=== PATIENT | female | born 1955 | race Caucasian/White ===

== ENCOUNTER 2017-04-01 08:15 | Day surgery (SDC) | payer OTHER ==
[~2017-04-01 08:15] MED LIST: Lactated Ringers 1,000 ML IV SCH; Sodium Chloride 0.9% 10 ML Syringe FLUSH PRN; Sodium Chloride 0.9% 2.5 ML Syringe FLUSH PRN
--- NOTE | 2017-04-01 08:48 | PCM.PREANE ---
Preanesthetic Assessment - Anesthesia/Transfusion/Family Hx Anesthesia History: Prior Anesthesia Without Reaction Family History of Anesthesia Reaction: No Transfusion History: No Prior Transfusion(s) Intubation History: Unknown - Review of Systems General: No Symptoms Pulmonary: No Symptoms Cardiovascular: No Symptoms Neurological: No Symptoms Other: Reports: None - Physical Assessment O2 Sat by Pulse Oximetry: 98 Respiratory Rate: 16 Vital Signs: Last Vital Signs Temp 36.5 C 04/01/17 08:26 Pulse 81 04/01/17 08:26 Resp 16 04/01/17 08:26 BP 144/64 H 04/01/17 08:26 Pulse Ox 98 04/01/17 08:26 Height: 1.6 m Weight: 74.389 kg ASA Class: 2 Mental Status: Alert & Oriented x3 Airway Class: Mallampati = 2 Dentition: Reports: Normal Dentition Thyro-Mental Finger Breadths: 3 Mouth Opening Finger Breadths: 3 ROM/Head Extension: Full Lungs: Clear to auscultation, Normal respiratory effort Cardiovascular: Regular Rate, Regular Rhythm - Allergies Allergies/Adverse Reactions: Allergies Allergy/AdvReac Type Severity Reaction Status Date / Time atorvastatin calcium Allergy Swelling Verified 03/30/17 10:02 [From Lipitor] hydrocodone Allergy Itching Verified 03/30/17 10:08 Latex, Natural Rubber Allergy Anaphylactic Verified 12/06/14 10:35 Shock oxycodone Allergy Itching Verified 03/30/17 10:08 Penicillins Allergy Anaphylactic Verified 03/30/17 10:08 Shock - Blood Blood Available: No - Anesthesia Plan Pre-Op Medication Ordered: None - Acknowledgements Anesthesia Type Planned: MAC Pt an Appropriate Candidate for the Planned Anesthesia: Yes Alternatives and Risks of Anesthesia Discussed w Pt/Guardian: Yes Pt/Guardian Understands and Agrees with Anesthesia Plan: Yes PreAnesthesia Questionnaire HEENT History: Reports: Other (see below) Other HEENT History: wears glasses Cardiovascular History: Reports: Other (see below) (h/o increased cholesterol) Genitourinary History: Reports: 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: Musculoskeletal History: Reports: Arthritis, Back pain, chronic, Other (see below) (bilateral hip pain, myofacial muscle pain) Other Musculoskeletal History: scoliosis - Past Surgical History Head Surgeries/Procedures: Reports: None HEENT Surgical History: Reports: Oral surgery Female Surgical History: Reports: Tubal ligation - SUBSTANCE USE Smoking Status *Q: Current Every Day Smoker (1 11/23 ppd) Tobacco Use Within Last Twelve Months: Cigarettes Recreational Drug Use History: No - HOME MEDS Home Medications: Home Meds Baclofen 10 mg PO TID PRN 03/30/17 [History] - CURRENT (IN HOUSE) MEDS Current Meds: Current Medications Lactated Ringer's (Ringers, Lactated) 1,000 mls @ 125 mls/hr IV ASDIRECTED MILLY Sodium Chloride (Saline Flush) 10 ml FLUSH ASDIRECTED PRN PRN Reason: Keep Vein Open Sodium Chloride (Saline Flush) 2.5 ml FLUSH ASDIRECTED PRN PRN Reason: Keep Vein Open
[2017-04-01] MEDS ORDERED: Lidocaine 2% 5 ML SDV ONE (09:56)
[2017-04-01] MEDS ORDERED: Midazolam 1 MG/ML 2 ML SDV ONE (09:57)
[2017-04-01] MEDS ORDERED: Propofol 200 MG/20 ML SDV ONE (09:57)
[2017-04-01] MEDS ORDERED: fentaNYL 100 MCG/2 ML SDV ONE (09:57)
--- NOTE | 2017-04-01 11:11 | PCM.OPNOTE ---
- General Post-Op/Procedure Note Date of Surgery/Procedure: 04/01/17 Operative Procedure(s): Screening colonoscopy Findings: sessile 1 mm polyp in rectum x 2, inflamed appeared lower aspect of rectum. One biopsy taken Pre Op Diagnosis: screening colonoscopy Post-Op Diagnosis: sigmoid polyp Anesthesia Technique: MAC Primary Surgeon: Mirlande Law Condition: Good
--- NOTE | 2017-04-01 11:22 | PCM.POSTAN ---
POST ANESTHESIA ASSESSMENT - MENTAL STATUS Mental Status: alert, oriented - RESPIRATORY Respiratory Status: respiratory rate WNL, airway patent, O2 saturation stable - CARDIOVASCULAR CV Status: pulse rate WNL, blood pressure stable - GASTROINTESTINAL GI Status: no symptoms - POST OP HYDRATION Hydration Status: adequate & stable - OBSERVATIONS Free Text/Narrative:: no anesthesia problems
[2017-04-01 11:45] VITALS: BP 119/68
--- NOTE | 2017-04-02 00:25 | OR ---
SURGEON: NICK ARITA MD DATE OF PROCEDURE: 04/01/2017 PREOPERATIVE DIAGNOSIS: Screening colonoscopy. POSTOPERATIVE DIAGNOSES: Two rectal polyps, rectal mucosal inflammation. PROCEDURE PERFORMED: Screening colonoscopy. INSTRUMENT USED: Olympus colonoscope. ANESTHESIA: MAC. EXTENT OF EXAM: To the cecum. PREPARATION: Good. LIMITATIONS: None. INDICATIONS FOR EXAMINATION: The patient is a 62-year-old female who presents for a screening colonoscopy. We discussed the procedure, expected perioperative course, and risks including bleeding, infection, or damage to surrounding structures, including perforation. The patient verbalized understanding and wishes to proceed. PROCEDURE IN DETAIL: The patient was brought to the endoscopy suite and placed in the left lateral decubitus position. A time-out was completed verifying the patient's name, age, date of , allergies, and procedure to be performed. Monitored anesthesia care was induced and continuous oxygen was provided via nasal cannula throughout the procedure. After adequate sedation was achieved, a digital rectal exam was performed. This examination was within normal limits. A well lubricated colonoscope was then inserted in the rectum and advanced under direct visualization to the level of cecum. The cecum was identified by both visual and anatomic landmarks. A photograph was taken of the cecal cap, but I was unable to retroflex within the cecum due to significant looping more proximally. The scope was then fully withdrawn while examining the color, texture, anatomy, and integrity of the mucosa from the cecum to the anal canal. Two small 1 mm sessile polyps were noted at the very proximal rectum. They were removed using a cold biopsy forceps and sent to pathology labeled as rectal polyps #1 and #2. The scope was then brought into the rectum and retroflexed to allow visualization of the anal canal opening. Upon doing so, I noted some inflammation around the anal canal opening. A small biopsy was taken of this tissue and sent as rectal biopsy. The scope was then straightened out and withdrawn from the patient. The procedure was terminated. The cecum to anus time was 28 minutes. The patient was transferred to the recovery room in stable condition. ENDOSCOPIC DIAGNOSIS: Rectal polyp x2, rectal inflammation. RECOMMENDATIONS: Follow up in clinic in 2 weeks. STEFAN NÚÑEZ /[id number]
== END 2017-04-01 11:58 | disposition home or self-care (01) ==
LOC: MW.SDS 08:15
PROVIDERS: ATTEND Surgery
DX: Z12.11 Encounter for screening for malignant neoplasm of colon (principal); D12.8 Benign neoplasm of rectum; K62.89 Other specified diseases of anus and rectum; G89.4 Chronic pain syndrome; M79.7 Fibromyalgia; E78.00 Pure hypercholesterolemia, unspecified; F17.210 Nicotine dependence, cigarettes, uncomplicated; Z88.5 Allergy status to narcotic agent; Z88.8 Allergy status to other drugs, medicaments and biological substances; Z91.040 Latex allergy status; Z98.51 Tubal ligation status; Z79.899 Other long term (current) drug therapy
CPT/HCPCS: 45380; 88305; J2250; J3010; J2704

== ENCOUNTER 2017-04-12 11:50 | Emergency (ER) | payer OTHER ==
[2017-04-12] MEDS ORDERED: Ketorolac 30 MG/ML SDV IVPUSH ONE (12:39)
[2017-04-12] MEDS ORDERED: Sodium Chloride 0.9% 1,000 ML IV ONE (12:39)
--- NOTE | 2017-04-12 12:56 | EDM.PDOC ---
ED HPI GENERAL MEDICAL PROBLEM - General Chief Complaint: Abdominal Pain Stated Complaint: INFECTION Time Seen by Provider: 04/12/17 12:40 Source of Information: Reports: Patient History Limitations: Reports: No Limitations - History of Present Illness INITIAL COMMENTS - FREE TEXT/NARRATIVE: History of present illness: [62-year-old female presenting with complaints of lower abdominal pain/pressure patient indicates that she had recently had colonoscopy and has had some GI distress since. Patient dialogue with Dr. Law who feels there could be the concern with any secondary infection of her: Status post procedure.] Review of systems: As per history of present illness and below otherwise all systems reviewed and negative. Past medical history: As per history of present illness and as reviewed below otherwise noncontributory. Surgical history: As per history of present illness and as reviewed below otherwise noncontributory. Social history: No reported history of drug or alcohol abuse. Family history: As per history of present illness and as reviewed below otherwise noncontributory. Physical exam: HEENT: Atraumatic, normocephalic, pupils reactive, negative for conjunctival pallor or scleral icterus, mucous membranes moist, throat clear, neck supple, nontender, trachea midline. Lungs: Clear to auscultation, breath sounds equal bilaterally, chest nontender. Heart: S1S2, regular, negative for clicks, rubs, or JVD. Abdomen: Soft, nondistended,diffuse non specific tenderness in lower quads. Negative for masses or hepatosplenomegaly. Negative for costovertebral tenderness. Pelvis: Stable nontender. Genitourinary: Deferred. Rectal: Deferred. Extremities: Atraumatic, negative for cords or calf pain. Neurovascular unremarkable. Neuro: Awake, alert, oriented. Cranial nerves II through XII unremarkable. Cerebellum unremarkable. Motor and sensory unremarkable throughout. Exam nonfocal. Diagnostics: [CBC, CMP, UA] Therapeutics: [IV fluid, Toradol] Impression: [abdominal pain] Plan: [] Definitive disposition and diagnosis as appropriate pending reevaluation and review of above. Lower Abdomen Pain Score (Numeric/FACES): 3 - Related Data Allergies Allergy/AdvReac Type Severity Reaction Status Date / Time atorvastatin calcium Allergy Swelling Verified 04/12/17 12:01 [From Lipitor] hydrocodone Allergy Itching Verified 04/12/17 12:01 Latex, Natural Rubber Allergy Anaphylactic Verified 04/12/17 12:01 Shock oxycodone Allergy Itching Verified 04/12/17 12:01 Penicillins Allergy Anaphylactic Verified 04/12/17 12:01 Shock Home Meds: Home Meds Baclofen 10 mg PO TID PRN 03/30/17 [History] Past Medical History HEENT History: Reports: Impaired Vision, Other (See Below) Other HEENT History: wears glasses Cardiovascular History: Reports: High Cholesterol Respiratory History: Reports: None Genitourinary History: Reports: 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: Musculoskeletal History: Reports: Arthritis, Back Pain, Chronic, Other (See Below) Other Musculoskeletal History: scoliosis Neurological History: Reports: None Psychiatric History: Reports: None Hematologic History: Reports: None Immunologic History: Reports: None Oncologic (Cancer) History: Reports: None Dermatologic History: Reports: None - Past Surgical History Head Surgeries/Procedures: Reports: None HEENT Surgical History: Reports: Oral Surgery GI Surgical History: Reports: Colonoscopy Female Surgical History: Reports: Tubal Ligation Social & Family History - Family History Family Medical History: Noncontributory - Tobacco Use Smoking Status *Q: Current Every Day Smoker Years of Tobacco use: 40 Packs/Tins Daily: 1 - Caffeine Use Caffeine Use: Reports: Coffee, Soda, Tea - Recreational Drug Use Recreational Drug Use: No ED ROS GENERAL - Review of Systems Review Of Systems: See Below (History of present illness) ED EXAM, GENERAL - Physical Exam Exam: See Below (See history of present illness) Course - Vital Signs Last Recorded V/S: Last Vital Signs Temp 36.2 C 04/12/17 11:58 Pulse 75 04/12/17 15:34 Resp 16 04/12/17 15:34 BP 148/64 H 04/12/17 15:34 Pulse Ox 97 04/12/17 15:34 - Orders/Labs/Meds Labs: Laboratory Tests 04/12/17 04/12/17 04/12/17 Range/Units 12:54 12:55 13:41 WBC 7.48 (4.0-11.0) K/uL RBC 6.05 H (4.30-5.90) M/uL Hgb 18.1 H (12.0-16.0) g/dL Hct 51.5 H (36.0-46.0) % MCV 85.1 (80.0-98.0) fL MCH 29.9 (27.0-32.0) pg MCHC 35.1 (31.0-37.0) g/dL RDW Std Deviation 40.7 (28.0-62.0) fl RDW Coeff of Shamar 13 (11.0-15.0) % Plt Count 251 (150-400) K/uL MPV 10.70 (7.40-12.00) fL Neut % (Auto) 54.8 (48.0-80.0) % Lymph % (Auto) 31.7 (16.0-40.0) % [place] % (Auto) 7.5 (0.0-15.0) % Eos % (Auto) 5.5 (0.0-7.0) % Baso % (Auto) 0.5 (0.0-1.5) % Neut # (Auto) 4.1 (1.4-5.7) K/uL Lymph # (Auto) 2.4 (0.6-2.4) K/uL [place] # (Auto) 0.6 (0.0-0.8) K/uL Eos # (Auto) 0.4 (0.0-0.7) K/uL Baso # (Auto) 0.0 (0.0-0.1) K/uL Nucleated RBC % 0.0 /100WBC Nucleated RBCs # 0 K/uL Sodium 141 (136-146) mmol/L Potassium 4.3 (3.5-5.1) mmol/L Chloride 109 (98-110) mmol/L Carbon Dioxide 23 (21-31) mmol/L BUN 16 (6.0-23.0) mg/dL Creatinine 1.0 (0.6-1.5) mg/dL Est Cr Clr Drug Dosing TNP Estimated GFR (MDRD) 56.2 ml/min Glucose 104 (60-110) mg/dL Calcium 8.9 (8.8-10.8) mg/dL Total Bilirubin 0.4 (0.1-1.5) mg/dL AST 26 (5-40) IU/L ALT 40 (8-54) IU/L Alkaline Phosphatase 48 (40-150) Total Protein 6.4 (6.0-8.0) g/dL Albumin 4.2 (3.4-4.8) g/dL Globulin 2.2 (2.0-3.5) g/dL Albumin/Globulin Ratio 1.9 (1.3-2.8) Urine Color YELLOW Urine Appearance CLEAR Urine pH 5.0 (5.0-8.0) Ur Specific [place] <= 1.005 (1.001-1.035) Urine Protein NEGATIVE (NEGATIVE) mg/dL Urine Glucose (UA) NEGATIVE (NEGATIVE) mg/dL Urine Ketones NEGATIVE (NEGATIVE) mg/dL Urine Occult Blood SMALL H (NEGATIVE) Urine Nitrite NEGATIVE (NEGATIVE) Urine Bilirubin NEGATIVE (NEGATIVE) Urine Urobilinogen 0.2 (<2.0) EU/dL Ur Leukocyte Esterase NEGATIVE (NEGATIVE) Urine RBC 0-1 (0-2/HPF) Urine WBC 0-1 (0-5/HPF) Ur Epithelial Cells RARE (NONE-FEW) Amorphous Sediment RARE (NEGATIVE) Urine Bacteria RARE (NEGATIVE) Meds: Medications Discontinued Medications Generic Name Dose Route Start Last Admin Trade Name Freq PRN Reason Stop Dose Admin Sodium Chloride 1,000 mls @ 999 mls/hr 04/12/17 12:39 04/12/17 13:02 Normal Saline IV 04/12/17 13:39 999 mls/hr STAT ONE Administration Iopamidol 75 ml 04/12/17 15:06 04/12/17 15:08 Isovue-370 (76%) IVPUSH 04/12/17 15:07 75 ml ONETIME STA Administration Ketorolac Tromethamine 30 mg 04/12/17 12:39 04/12/17 13:02 Toradol IVPUSH 04/12/17 12:40 30 mg ONETIME ONE Administration Departure - Departure Time of Disposition: 15:41 Disposition: Home, Self-Care 01 Condition: good Clinical Impression: Abdominal pain - Discharge Information Forms: ED Department Discharge Additional Instructions: The following information is given to patients seen in the emergency department who are being discharged to home. This information is to outline your options for follow-up care. We provide all patients seen in our emergency department with a follow-up referral. The need for follow-up, as well as the timing and circumstances, are variable depending upon the specifics of your emergency department visit. If you don't have a primary care physician on staff, we will provide you with a referral. We always advise you to contact your personal physician following an emergency department visit to inform them of the circumstance of the visit and for follow-up with them and/or the need for any referrals to a consulting specialist. The emergency department will also refer you to a specialist when appropriate. This referral assures that you have the opportunity for follow-up care with a specialist. All of these measure are taken in an effort to provide you with optimal care, which includes your follow-up. Under all circumstances we always encourage you to contact your private physician who remains a resource for coordinating your care. When calling for follow-up care, please make the office aware that this follow-up is from your recent emergency room visit. If for any reason you are refused follow-up, please contact the [facility] Emergency Department at and asked to speak to the emergency department charge nurse. follow up with PCP in 1-2 days return to ED as needed as discussed
[2017-04-12 14:12] LABS: CHLORIDE,CL 109 mmol/L (98-110); SODIUM,NA 141 mmol/L (136-146)
[2017-04-12] MEDS ORDERED: Iopamidol 755 Mg/ML 100 ML Bottle IVPUSH STA (15:06)
--- NOTE | 2017-04-12 15:35 | CT ---
CT of the abdomen and pelvis with contrast. HISTORY: Pain TECHNIQUE: Axial CT images were obtained of the abdomen and pelvis following administration of 75 mL of Isovue-370 in the left antecubital fossa without complication. Coronal and sagittal reconstructi ons obtained. FINDINGS: The lung bases are clear, no pleural effusion. There is a tiny hepatic hypodensity noted measuring approximately 1 cm within the dome of the left h epatic lobe. The spleen, adrenal glands, and pancreas appear normal. The gallbladder is unremarkable . The kidneys enhance and function symmetrically without evidence of obstructive uropathy. There is a tiny fat-containing periumbilical hernia. The large and small bowel are normal in caliber without evidence of obstruction. No pericolonic infl ammation or stranding. The appendix is mildly prominent in size at 7 mm without periappendiceal stra nding noted. No free pelvic fluid or pelvic lymphadenopathy. The urinary bladder uterus, and ovaries appear normal. No suspicious osseous abnormalities identified. IMPRESSION: 1. No definite acute abnormality within the abdomen or pelvis. 2. The appendix is borderline in size, otherwise appears unremarkable. Correlate clinically for foca l pain.
[2017-04-12 15:58] VITALS: BP 148/75
== END 2017-04-12 15:50 | disposition home or self-care (01) ==
LOC: MW.ED 11:50
DX: R10.30 Lower abdominal pain, unspecified (principal); E78.00 Pure hypercholesterolemia, unspecified; M19.90 Unspecified osteoarthritis, unspecified site; F17.210 Nicotine dependence, cigarettes, uncomplicated; Z88.8 Allergy status to other drugs, medicaments and biological substances; Z88.0 Allergy status to penicillin; Z88.5 Allergy status to narcotic agent; Z91.040 Latex allergy status; Z79.899 Other long term (current) drug therapy
CPT/HCPCS: 36415; 74177; 80053; 81001; 85025; 96361; 96374; 99284; J1885; J7040; Q9967

== ENCOUNTER 2018-04-30 10:08 | Emergency (ER) | payer OTHER ==
[2018-04-30] MEDS ORDERED: Ketorolac 60 MG/2 ML SDV IM ONE (11:08)
--- NOTE | 2018-04-30 11:10 | EDM.PDOC ---
ED HPI GENERAL MEDICAL PROBLEM - General Chief Complaint: Back Pain or Injury Stated Complaint: MUSCLES SPASMS Time Seen by Provider: 04/30/18 11:00 Source of Information: Reports: Patient History Limitations: Reports: No Limitations - History of Present Illness INITIAL COMMENTS - FREE TEXT/NARRATIVE: HISTORY AND PHYSICAL: History of present illness: [Comes to the emergency room complaining of low back pain and muscle spasms. She has a long history of low back pain, fibromyalgia and degenerative disc disease. She follows regularly with the [facility] and Dr. Gamboa for management of her back pain. She is prescribed morphine and baclofen to take regularly which is not providing any improvement in her symptoms. She states that her low back pain has been worse over the last couple of weeks which she attributes to change in the weather. She denies that her pain is different than usual but feels more severe. No new numbness or tingling. No difficulty standing or walking. No episodes of incontinence. No fever or chills. Denies Constipation or diarrhea, burning with urination and frequency. No chest pain shortness of breath or difficulty breathing. Smokes 1-1-1/2 packs of cigarettes per day.] Review of systems: As per history of present illness and below otherwise all systems reviewed and negative. Past medical history: As per history of present illness and as reviewed below otherwise noncontributory. Surgical history: As per history of present illness and as reviewed below otherwise noncontributory. Social history: No reported history of drug or alcohol abuse. Family history: As per history of present illness and as reviewed below otherwise noncontributory. Physical exam: HEENT: Atraumatic, normocephalic. Oral mucous membranes are pink and moist. Back: Normal in appearance. She is nontender over her vertebra and no step-offs are noted. Appears to be in alignment. She is tender with palpation over the musculature surrounding her lumbar spine and into her right hip. She denies any tenderness over the SI joint. Negative straight leg. She changes positions slowly due to the muscle spasms she is experiencing. Extremities: Atraumatic, negative for cords or calf pain. Neurovascular unremarkable. Neuro: Awake, alert, oriented. Cranial nerves II through XII unremarkable. Cerebellum unremarkable. Motor and sensory unremarkable throughout. Exam nonfocal. Therapeutics: [Toradol 60 mg IM, Norflex 60 mg IM] Impression: [Low back pain, chronic] Plan: [Toradol and Norflex injections are given in the emergency room. She is instructed to follow-up with the [place] [facility] on Wednesday as we discussed. Continue home medications. Strict return precautions are reviewed. She is in agreement with today's plan.] Definitive disposition and diagnosis as appropriate pending reevaluation and review of above. Bilateral Hip Pain Score (Numeric/FACES): 10 - Related Data Allergies Allergy/AdvReac Type Severity Reaction Status Date / Time atorvastatin calcium Allergy Swelling Verified 04/30/18 10:17 [From Lipitor] hydrocodone Allergy Itching Verified 04/30/18 10:17 Latex, Natural Rubber Allergy Anaphylactic Verified 04/30/18 10:17 Shock oxycodone Allergy Itching Verified 04/30/18 10:17 Penicillins Allergy Anaphylactic Verified 04/30/18 10:17 Shock Home Meds: Home Meds Baclofen 10 mg PO TID PRN 03/30/17 [History] Morphine 7.5 mg QID PRN 04/30/18 [History] Past Medical History HEENT History: Reports: Impaired Vision, Other (See Below) Other HEENT History: wears glasses Cardiovascular History: Reports: High Cholesterol Respiratory History: Reports: None Genitourinary History: Reports: 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: Musculoskeletal History: Reports: Arthritis, Back Pain, Chronic, Fibromyalgia, Other (See Below) Other Musculoskeletal History: scoliosis Neurological History: Reports: None Psychiatric History: Reports: None Hematologic History: Reports: None Immunologic History: Reports: None Oncologic (Cancer) History: Reports: None Dermatologic History: Reports: None - Past Surgical History Head Surgeries/Procedures: Reports: None HEENT Surgical History: Reports: Oral Surgery GI Surgical History: Reports: Colonoscopy Female Surgical History: Reports: Tubal Ligation Other Musculoskeletal Surgeries/Procedures:: Degen. Disc Disease Social & Family History - Family History Family Medical History: Noncontributory - Tobacco Use Smoking Status *Q: Current Every Day Smoker Years of Tobacco use: 45 Packs/Tins Daily: 1.5 - Caffeine Use Caffeine Use: Reports: Coffee, Tea - Recreational Drug Use Recreational Drug Use: No ED ROS GENERAL - Review of Systems Review Of Systems: ROS reveals no pertinent complaints other than HPI. ED EXAM,LOWER BACK PAIN/INJURY - Physical Exam Exam: See Below Course - Vital Signs Last Recorded V/S: Last Vital Signs Temp 97.7 F 04/30/18 10:13 Pulse 75 04/30/18 10:13 Resp 22 H 04/30/18 10:13 BP 118/59 L 04/30/18 10:13 Pulse Ox 95 04/30/18 10:13 - Orders/Labs/Meds Orders: Active Orders 24 hr Category Date Time Status Orphenadrine [Norflex] Med 04/30/18 11:15 Active 60 mg IM Q12H Medication Orders Orphenadrine Citrate (Norflex) 60 mg IM Q12H MILLY Meds: Medications Generic Name Dose Route Start Last Admin Trade Name Freq PRN Reason Stop Dose Admin Orphenadrine Citrate 60 mg 04/30/18 11:15 Norflex IM Q12H MILLY Discontinued Medications Generic Name Dose Route Start Last Admin Trade Name Freq PRN Reason Stop Dose Admin Ketorolac Tromethamine 60 mg 04/30/18 11:08 Toradol IM 04/30/18 11:09 ONETIME ONE Departure - Departure Time of Disposition: 11:15 Disposition: Home, Self-Care 01 Condition: Good Clinical Impression: Chronic low back pain - Discharge Information Referrals: PCP,None [Primary Care Provider] - Forms: ED Department Discharge Additional Instructions: The following information is given to patients seen in the emergency department who are being discharged to home. This information is to outline your options for follow-up care. We provide all patients seen in our emergency department with a follow-up referral. The need for follow-up, as well as the timing and circumstances, are variable depending upon the specifics of your emergency department visit. If you don't have a primary care physician on staff, we will provide you with a referral. We always advise you to contact your personal physician following an emergency department visit to inform them of the circumstance of the visit and for follow-up with them and/or the need for any referrals to a consulting specialist. The emergency department will also refer you to a specialist when appropriate. This referral assures that you have the opportunity for follow-up care with a specialist. All of these measure are taken in an effort to provide you with optimal care, which includes your follow-up. Under all circumstances we always encourage you to contact your private physician who remains a resource for coordinating your care. When calling for follow-up care, please make the office aware that this follow-up is from your recent emergency room visit. If for any reason you are refused follow-up, please contact the [facility] emergency department at and asked to speak to the emergency department charge nurse. [facility] Primary Care [facility] [place] [id number] Follow-up with your local primary care provider at the clinic listed above in 48 -72 hours. Continue all other home medications as prescribed. Return to ER as needed as discussed. - My Orders Last 24 Hours: My Active Orders 04/30/18 11:15 Orphenadrine [Norflex] 60 mg IM Q12H - Assessment/Plan Last 24 Hours: My Active Orders 04/30/18 11:15 Orphenadrine [Norflex] 60 mg IM Q12H
[2018-04-30 12:04] VITALS: BP 110/50
== END 2018-04-30 12:04 | disposition home or self-care (01) ==
LOC: MW.ED 10:08
DX: G89.29 Other chronic pain (principal); M54.5 Low back pain; F17.210 Nicotine dependence, cigarettes, uncomplicated; E78.00 Pure hypercholesterolemia, unspecified; M19.90 Unspecified osteoarthritis, unspecified site; Z91.040 Latex allergy status; Z88.0 Allergy status to penicillin; Z88.6 Allergy status to analgesic agent; Z88.8 Allergy status to other drugs, medicaments and biological substances
CPT/HCPCS: 96374; 96375; 99283; J1885; J2360

== ENCOUNTER 2020-09-21 11:14 | Emergency (ER) | payer OTHER ==
[2020-09-21] MEDS ORDERED: Orphenadrine 60 MG/2 ML Inj IM ONE (12:27)
[2020-09-21] MEDS ORDERED: Diazepam 5 MG Tab PO ONE (12:28)
[2020-09-21 12:32] VITALS: BP 145/68; PULSE 70
--- NOTE | 2020-09-21 12:36 | EDM.PDOC ---
ED HPI GENERAL MEDICAL PROBLEM - General Chief Complaint: Back Pain or Injury Stated Complaint: BACK PAIN/MUSCLE SPASMS Time Seen by Provider: 09/21/20 12:06 Source of Information: Reports: Patient History Limitations: Reports: No Limitations - History of Present Illness INITIAL COMMENTS - FREE TEXT/NARRATIVE: Presents reporting an exacerbation of her chronic low back pain and spasms. Patient states that she has suffered from low back pain, degenerative disc disease, fibromyalgia and back spasms for many years. She is currently under the care of a pain clinic. She is maintained on a regimen of diclofenac twice daily and baclofen. She states that every couple of years she has an exacerbation that requires urgent treatment. For the last couple of days she has had increasing low back pain and spasms with cramping in the legs and feet. She denies any tingling or numbness to the buttocks thighs, legs or feet, no saddle anesthesia, no fevers. Aside from her back problems she has some mild asthma and smokes cigarettes but is otherwise healthy. - Related Data Allergies Allergy/AdvReac Type Severity Reaction Status Date / Time atorvastatin calcium Allergy Swelling Verified 04/30/18 10:17 [From Lipitor] hydrocodone Allergy Itching Verified 04/30/18 10:17 Latex, Natural Rubber Allergy Anaphylactic Verified 04/30/18 10:17 Shock oxycodone Allergy Itching Verified 04/30/18 10:17 Penicillins Allergy Anaphylactic Verified 04/30/18 10:17 Shock Home Meds: Home Meds Baclofen 10 mg PO TID PRN 03/30/17 [History] diazePAM [Valium] 1 - 2 tab PO BEDTIME PRN #10 tablet 09/21/20 [Rx] Past Medical History HEENT History: Reports: Impaired Vision, Other (See Below) Other HEENT History: wears glasses Cardiovascular History: Reports: High Cholesterol Respiratory History: Reports: None Genitourinary History: Reports: None 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: Musculoskeletal History: Reports: Arthritis, Back Pain, Chronic, Fibromyalgia, Other (See Below) Other Musculoskeletal History: scoliosis Neurological History: Reports: None Psychiatric History: Reports: None Hematologic History: Reports: None Immunologic History: Reports: None Oncologic (Cancer) History: Reports: None Dermatologic History: Reports: None - Past Surgical History Head Surgeries/Procedures: Reports: None HEENT Surgical History: Reports: Oral Surgery GI Surgical History: Reports: Colonoscopy Female Surgical History: Reports: Tubal Ligation Other Musculoskeletal Surgeries/Procedures:: Degen. Disc Disease Social & Family History - Family History Family Medical History: Noncontributory - Caffeine Use Caffeine Use: Reports: Coffee, Tea ED ROS GENERAL - Review of Systems Review Of Systems: Comprehensive ROS is negative, except as noted in HPI. ED EXAM,LOWER BACK PAIN/INJURY - Physical Exam Exam: See Below Exam Limited By: No Limitations General Appearance: Alert, Mild Distress (Must change her posture and sitting stance due to pain) Ears: Normal External Exam Nose: Normal Inspection Throat/Mouth: Normal Inspection Head: Atraumatic, Normocephalic Neck: Normal Inspection Respiratory/Chest: No Respiratory Distress, Lungs Clear, Normal Breath Sounds Cardiovascular: Normal Peripheral Pulses, Regular Rate, Rhythm, No Murmur Back Exam: Normal Inspection, Muscle Spasm, Paraspinal Tenderness, Vertebral Tenderness Extremities: Normal Inspection, Normal Range of Motion Neurological: Alert, Normal Dorsiflexion, Normal Plantar Flexion, Normal Gait, Normal Reflexes, No Motor/Sensory Deficits DTR - Lower Extremities: 2+: Knee (R), Knee (L) Psychiatric: Normal Affect, Normal Mood Skin Exam: Warm, Dry, Intact, Normal Color, No Rash Lymphatic: No Adenopathy Course - Orders/Labs/Meds Meds: Medications Discontinued Medications Generic Name Dose Route Start Last Admin Trade Name Freq PRN Reason Stop Dose Admin Diazepam 5 mg 09/21/20 12:28 Valium. PO 09/21/20 12:29 ONETIME ONE Orphenadrine Citrate 60 mg 09/21/20 12:27 Norflex IM 09/21/20 12:28 ONETIME ONE Departure - Departure Time of Disposition: 12:36 Disposition: Home, Self-Care 01 Condition: Good Clinical Impression: Lumbar arthropathy - Discharge Information *PRESCRIPTION DRUG MONITORING PROGRAM REVIEWED*: Yes *COPY OF PRESCRIPTION DRUG MONITORING REPORT IN PATIENT CHIQUITA: No Prescriptions: diazePAM [Valium] 1 - 2 tab PO BEDTIME PRN #10 tablet PRN Reason: Sleep Referrals: PCP,None [Primary Care Provider] - Additional Instructions: The following information is given to patients seen in the emergency department who are being discharged to home. This information is to outline your options for follow-up care. We provide all patients seen in our emergency department with a follow-up referral. The need for follow-up, as well as the timing and circumstances, are variable depending upon the specifics of your emergency department visit. If you don't have a primary care physician on staff, we will provide you with a referral. We always advise you to contact your personal physician following an emergency department visit to inform them of the circumstance of the visit and for follow-up with them and/or the need for any referrals to a consulting s pecialist. The emergency department will also refer you to a specialist when appropriate. This referral assures that you have the opportunity for follow-up care with a specialist. All of these measure are taken in an effort to provide you with optimal care, which includes your follow-up. Under all circumstances we always encourage you to contact your private physician who remains a resource for coordinating your care. When calling for follow-up care, please make the office aware that this follow-up is from your recent emergency room visit. If for any reason you are refused follow-up, please contact the [facility] Emergency Department at and asked to speak to the emergency department charge nurse. [facility] [address] [place] [id number] 1. Follow-up with your pain management provider on Wednesday. 2. Given a muscle relaxant in the emergency room as well as Valium. No driving or operating machinery today 3. Warning signs to return to the emergency room: Difficulty walking, bowel or bladder incontinence, tingling or numbness/weakness in the legs or feet, fever 4. Valium 5 mg every 8 hours and/or before bedtime for relaxation and sleep.
== END 2020-09-21 13:25 | disposition home or self-care (01) ==
LOC: MW.ED 11:14
DX: M47.816 Spondylosis without myelopathy or radiculopathy, lumbar region (principal); Z88.0 Allergy status to penicillin; Z88.5 Allergy status to narcotic agent; Z91.040 Latex allergy status; Z88.8 Allergy status to other drugs, medicaments and biological substances; Z98.51 Tubal ligation status
CPT/HCPCS: 96372; 99283; A9270; J2360; 99282

== ENCOUNTER 2021-11-14 13:27 | Emergency (ER) | payer OTHER ==
[2021-11-14 13:48] VITALS: PULSE 78
--- NOTE | 2021-11-14 14:17 | EDM.PDOC ---
ED HPI GENERAL MEDICAL PROBLEM - General Chief Complaint: General Stated Complaint: TEETH PAIN Time Seen by Provider: 11/14/21 13:30 Source of Information: Reports: Patient History Limitations: Reports: No Limitations - History of Present Illness INITIAL COMMENTS - FREE TEXT/NARRATIVE: 66-year-old female presents for dental pain. Patient first noted pain this morning. It is in her left sided upper mouth. She has had similar pain in the past attributed to dental infections. She was unable to get in with her dentist due to the holidays. She denies any fevers, difficulty swallowing, difficulty breathing. Left Jaw Pain Score (Numeric/FACES): 8 - Related Data Allergies Allergy/AdvReac Type Severity Reaction Status Date / Time atorvastatin calcium Allergy Swelling Verified 11/14/21 13:42 [From Lipitor] hydrocodone Allergy Itching Verified 11/14/21 13:42 Latex, Natural Rubber Allergy Anaphylactic Verified 11/14/21 13:42 Shock oxycodone Allergy Itching Verified 11/14/21 13:42 Penicillins Allergy Anaphylactic Verified 11/14/21 13:42 Shock Home Meds: Home Meds Morphine 15 mg PO Q4H PRN #18 tab 11/14/21 [Rx] clindamycin HCL [Cleocin] 450 mg PO Q8H 7 Days #63 cap 11/14/21 [Rx] Past Medical History HEENT History: Reports: Impaired Vision, Other (See Below) Other HEENT History: wears glasses Cardiovascular History: Reports: High Cholesterol Respiratory History: Reports: None Genitourinary History: Reports: None 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: Musculoskeletal History: Reports: Arthritis, Back Pain, Chronic, Fibromyalgia, Other (See Below) Other Musculoskeletal History: scoliosis Neurological History: Reports: None Psychiatric History: Reports: None Hematologic History: Reports: None Immunologic History: Reports: None Oncologic (Cancer) History: Reports: None Dermatologic History: Reports: None - Infectious Disease History Infectious Disease History: Reports: Chicken Pox - Past Surgical History Head Surgeries/Procedures: Reports: None HEENT Surgical History: Reports: Oral Surgery GI Surgical History: Reports: Colonoscopy Female Surgical History: Reports: Tubal Ligation Other Musculoskeletal Surgeries/Procedures:: Degen. Disc Disease Social & Family History - Family History Family Medical History: No Pertinent Family History - Tobacco Use Tobacco Use Status *Q: Current Every Day Tobacco User Years of Tobacco use: 45 Packs/Tins Daily: 0.7 - Caffeine Use Caffeine Use: Reports: Coffee, Soda, Tea - Alcohol Use Days Per Week of Alcohol Use: 6 Number of Drinks Per Day: 1 Total Drinks Per Week: 6 - Recreational Drug Use Recreational Drug Use: No ED ROS GENERAL - Review of Systems Review Of Systems: Comprehensive ROS is negative, except as noted in HPI. ED EXAM, GENERAL - Physical Exam Exam: See Below Exam Limited By: No Limitations General Appearance: Alert, WD/WN, No Apparent Distress Ears: Hearing Grossly Normal Throat/Mouth: Normal Voice, No Airway Compromise Head: Atraumatic, Normocephalic Respiratory/Chest: No Respiratory Distress, Lungs Clear, Normal Breath Sounds, No Accessory Muscle Use Cardiovascular: Normal Peripheral Pulses, Regular Rate, Rhythm Extremities: Normal Inspection Neurological: Alert, Normal Cognition, Normal Gait Psychiatric: Normal Affect, Normal Mood Skin Exam: Warm, Dry, Intact, Normal Color Course - Vital Signs Last Recorded V/S: Last Vital Signs Temp 97.9 F 11/14/21 13:43 Pulse 78 11/14/21 13:43 Resp 20 11/14/21 13:43 BP 131/74 11/14/21 13:43 Pulse Ox 97 11/14/21 13:43 - Re-Assessments/Exams Free Text/Narrative Re-Assessment/Exam: 11/14/21 14:16 We will treat for dental infection. Antibiotics and pain medicine sent to [facility]. 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 I have sent antibiotics as well as pain medicine to [facility] which is located in the back right corner of the [employer] [employer]. Please follow-up with your dentist as soon as you are able to. If you have worsening symptoms or any concerns please come back to the emergency department for reassessment. The following information is given to patients seen in the emergency department who are being discharged to home. This information is to outline your options for follow-up care. We provide all patients seen in our emergency department with a follow-up referral. The need for follow-up, as well as the timing and circumstances, are variable depending upon the specifics of your emergency department visit. If you don't have a primary care physician on staff, we will provide you with a referral. We always advise you to contact your personal physician following an emergency department visit to inform them of the circumstance of the visit and for follow-up with them and/or the need for any referrals to a consulting specialist. The emergency department will also refer you to a specialist when appropriate. This referral assures that you have the opportunity for follow-up care with a specialist. All of these measure are taken in an effort to provide you with optimal care, which includes your follow-up. Under all circumstances we always encourage you to contact your private physician who remains a resource for coordinating your care. When calling for follow-up care, please make the office aware that this follow-up is from your recent emergency room visit. If for any reason you are refused follow-up, please contact the [facility] Emergency Department at and asked to speak to the emergency department charge nurse. Please follow up with your primary care physician. If you do not have a primary care physician, see below: [facility] [address] [place] [id number] [facility] [address] [place] [address] [facility] [address] [place] [id number] Sepsis Event Note (ED) - Focused Exam Vital Signs: Vital Signs Temp Pulse Resp BP Pulse Ox 11/14/21 13:43 97.9 F 78 20 131/74 97
[2021-11-14 14:29] VITALS: BP 130/72
== END 2021-11-14 14:30 | disposition home or self-care (01) ==
LOC: MW.ED 13:27
DX: K04.7 Periapical abscess without sinus (principal); Z88.0 Allergy status to penicillin; Z88.5 Allergy status to narcotic agent; Z91.040 Latex allergy status; Z88.8 Allergy status to other drugs, medicaments and biological substances; Z72.0 Tobacco use
CPT/HCPCS: 99282; 99283

== ENCOUNTER 2022-09-03 09:55 | Emergency (ER) | payer OTHER ==
[2022-09-03 10:45] LABS: CARBON DIOXIDE,CO2 30.5 mmol/L (21.0-32.0); POTASSIUM,K 4.1 mmol/L (3.5-5.1)
[2022-09-03] MEDS: Morphine 4 MG/ML Syringe IVPUSH ONE ×2 (11:14→12:48)
[2022-09-03] MEDS: Ondansetron 4 MG/2 ML SDV IVPUSH ONE (11:14)
[2022-09-03] MEDS: Pantoprazole 80 MG in Sodium Chloride 0.9% 10 ML IVPUSH ONE (11:15)
[2022-09-03] MEDS: Famotidine 20 MG Tab PO ONE (11:15)
[2022-09-03] MEDS: Pantoprazole 40 MG Vial ONE (11:16)
[2022-09-03] MEDS: Famotidine 20 MG Tab ONE (11:16)
[2022-09-03] MEDS: Morphine 4 MG/ML Syringe ONE ×2 (11:16→12:48)
[2022-09-03] MEDS: Ondansetron 4 MG/2 ML SDV ONE (11:16)
[2022-09-03 14:21] VITALS: BP 130/46; PULSE 57
== END 2022-09-03 14:21 | disposition home or self-care (01) ==
LOC: MW.ED 09:55
DX: R07.89 Other chest pain (principal); Z88.8 Allergy status to other drugs, medicaments and biological substances; Z88.5 Allergy status to narcotic agent; Z91.040 Latex allergy status; Z88.0 Allergy status to penicillin
CPT/HCPCS: 36415; 71046; 80053; 81003; 83690; 84484; 85025; 87086; 96374; 96375; 99285; A9270; C9113; J2270; J2405; J3490; 93010; 99284

== ENCOUNTER 2022-09-08 06:00 | Day surgery (SDC) | payer OTHER ==
[2022-09-08] MEDS ORDERED: Propofol 200 MG/20 ML SDV ONE (08:23)
[2022-09-08] MEDS ORDERED: Lactated Ringers 1,000 ML IV ONE (10:00)
== END 2022-09-08 11:16 ==
LOC: MW.SDS 06:00
PROVIDERS: ATTEND Surgery
DX: Z12.11 Encounter for screening for malignant neoplasm of colon (principal); D12.3 Benign neoplasm of transverse colon; J30.9 Allergic rhinitis, unspecified; M19.90 Unspecified osteoarthritis, unspecified site; M81.0 Age-related osteoporosis without current pathological fracture; F17.210 Nicotine dependence, cigarettes, uncomplicated; Z86.010 Personal history of colon polyps; Z79.899 Other long term (current) drug therapy; Z88.0 Allergy status to penicillin; Z91.040 Latex allergy status; Z88.5 Allergy status to narcotic agent; Z88.8 Allergy status to other drugs, medicaments and biological substances
CPT/HCPCS: 45380; J2704; J7120; 00811